=== PATIENT | female | born 1985 | race Caucasian/White ===

== ENCOUNTER 2017-05-21 07:55 | Emergency (ER) | payer MEDICAID ==
[~2017-05-21] VITALS: Ht 165.1 cm; Wt 95.4 kg
[2017-05-21 08:01] VITALS: BP 115/62
--- NOTE | 2017-05-21 08:30 | NUR ---
BIB SELF C/O PAINFUL LUMP RIGHT AXILLA X 2 WKS---PALPATED, NO REDNESS, NO GROWTH VISUALLY NOTED. DENIES N/V/D; SKIN IS PINK/WARM/DRY; AAOX4 WITH EVEN AND STEADY GAIT; LUNGS CLEAR BL; HR EVEN AND REGULAR; PT DENIES ANY FEVER, CP, SOB, OR COUGH AT THIS TIME; PATIENT STATES PAIN OF 8/10 AT THIS TIME; PATIENT POSITIONED FOR COMFORT; HOB ELEVATED; BEDRAILS UP X2; BED DOWN. ER MADE AWARE OF PT STATUS. Addendum: 05/21/17 at 0913 by [email or web address] PT STS DON'T WANT PAIN MED AT THIS TIME.
[2017-05-21 09:00] VITALS: BP 107/63
--- NOTE | 2017-05-21 09:00 | NUR ---
Patient discharged with v/s stable. Written and verbal after care instructions given and explained. Patient alert, oriented and verbalized understanding of instructions. Ambulatory with steady gait. All questions addressed prior to discharge. ID band removed. Patient advised to follow up with PMD. Rx of CAPHALEXIN & NAPROSYN given. Patient educated on indication of medication including possible reaction and side effects. Opportunity to ask questions provided and answered.
== END 2017-05-21 09:00 | disposition home or self-care (01) ==
LOC: MED 07:55
DX: R22.9 Localized swelling, mass and lump, unspecified (principal)
CPT/HCPCS: 99284

== ENCOUNTER 2018-01-29 08:38 | Emergency (ER) | payer MEDICAID ==
[~2018-01-29] VITALS: Ht 165.1 cm; Wt 100.4 kg
[2018-01-29 08:52] VITALS: BP 113/61
--- NOTE | 2018-01-29 08:58 | NUR ---
PT AMBULATES TO BED 11
--- NOTE | 2018-01-29 09:01 | NUR ---
PATIENT PRESENTS TO ED WITH LEFT LOWER QUADRANT PAIN. PT STATES SHE HAS HAD THIS PAIN FOR THREE DAYS AND IS FEELING SOME BLOATING. LAST BOWEL MOVEMENT WAS YESTERDAY. LMP 01/12/2018. DENIES N/V/D; SKIN IS PINK/WARM/DRY; AAOX4 WITH EVEN AND STEADY GAIT; LUNGS CLEAR BL; HR EVEN AND REGULAR; PT DENIES ANY FEVER, CP, SOB, OR COUGH AT THIS TIME; PATIENT STATES PAIN OF 8/10 AT THIS TIME; VSS; PATIENT POSITIONED FOR COMFORT; HOB ELEVATED; BEDRAILS UP X1; BED DOWN. ER MD MADE AWARE OF PT STATUS.
[2018-01-29] MEDS ORDERED: KETOROLAC 30 MG/ML VIAL IVP ONE (09:05)
[2018-01-29] MEDS ORDERED: NACL 0.9% 1,000 ML IV ONE (09:05)
[2018-01-29 09:39] LABS: BASOPHILS # (AUTO) 0.1 K/uL (0.00-0.22); EOSINOPHILS # (AUTO) 0.2 K/uL (0-0.4); EOSINOPHILS % (AUTO) 2.4 % (0.0-4.0); HEMATOCRIT 41.4 % (36-48); HEMOGLOBIN 14.1 g/dL (12.0-16.0); LYMPHOCYTES # (AUTO) 2.3 K/uL (2.5-16.5); LYMPHOCYTES % (AUTO) 28.4 % (20.5-51.1); MEAN CORPUSCULAR HEMOGLOBIN 31 pg (27-31); MEAN CORPUSCULAR HGB CONC 34 g/dL (33-37); MONOCYTES # (AUTO) 0.6 K/uL (0.8-1.0); MONOCYTES % (AUTO) 7.8 % (1.7-9.3); NEUTROPHILS % (AUTO) 60.4 % (42.2-75.2); PLATELET COUNT (AUTO) 268 K/uL (140-450); RED CELL DISTRIBUTION WIDTH 12.6 % (11.6-13.7); WHITE BLOOD COUNT (AUTO) 8.3 K/uL (4.8-10.8)
[2018-01-29 09:47] LABS: APPEARANCE,URINE CLEAR (CLEAR); BILIRUBIN,URINE NEGATIVE (NEGATIVE); BLOOD, URINE 1+ (NEGATIVE); COLOR,URINE YELLOW (YELLOW); LEUKOCYTE ESTERASE ,URINE NEGATIVE (NEGATIVE); NITRITE, URINE NEGATIVE (NEGATIVE); UGLUCOSE NEGATIVE (NEGATIVE)
[2018-01-29 09:52] LABS: ALBUMIN 3.6 g/dL (3.4-5.0); ANION GAP 13.2 (8-16); CARBON DIOXIDE 25.5 mmol/L (21-32); CREATININE 0.6 mg/dL (0.6-1.3); POTASSIUM 3.7 mmol/L (3.5-5.1); TOTAL BILIRUBIN 0.5 mg/dL (0.0-1.0)
[2018-01-29 10:01] LABS: RBC,URINE 0-5 (RARE) /HPF (0-5); WBC,URINE 0-5 (RARE) /HPF (0-5)
--- NOTE | 2018-01-29 10:50 | NUR ---
PATIENT TAKEN TO CT.
--- NOTE | 2018-01-29 12:02 | NUR ---
MD AT BEDSIDE SPEAKING WITH PT
[2018-01-29 12:10] VITALS: BP 115/65
--- NOTE | 2018-01-29 12:10 | NUR ---
Patient discharged with v/s stable. Written and verbal after care instructions given and explained. Patient alert, oriented and verbalized understanding of instructions. Ambulatory with steady gait. All questions addressed prior to discharge. ID band removed. Patient advised to follow up with PMD. Rx of SIMETHICONE AND IBUPROFEN given. Patient educated on indication of medication including possible reaction and side effects. Opportunity to ask questions provided and answered.
== END 2018-01-29 12:10 | disposition home or self-care (01) ==
LOC: MED 08:38
DX: R10.32 Left lower quadrant pain (principal)
CPT/HCPCS: 36415; 74176; 80053; 81001; 81025; 82150; 83690; 84703; 85025; 96374; 99285; J1885

== ENCOUNTER 2018-03-20 06:38 | Emergency (ER) | payer MEDICAID ==
[~2018-03-20] VITALS: Ht 160 cm; Wt 101.2 kg
[2018-03-20 06:43] VITALS: BP 127/82
[2018-03-20] MEDS ORDERED: diphenhydrAMINE 50 MG/ML VIAL IM ONE (07:10)
[2018-03-20] MEDS ORDERED: DEXAMETHASONE 10 MG/ML VIAL IM ONE (07:10)
[2018-03-20 07:43] VITALS: BP 122/80
== END 2018-03-20 07:43 | disposition home or self-care (01) ==
LOC: MED 06:38
DX: L29.9 Pruritus, unspecified (principal); L98.9 Disorder of the skin and subcutaneous tissue, unspecified
CPT/HCPCS: 99283

== ENCOUNTER 2018-07-18 07:51 | Emergency (ER) | payer MEDICAID ==
[~2018-07-18] VITALS: Ht 160 cm; Wt 95.3 kg
[2018-07-18 08:06] VITALS: BP 139/88
--- NOTE | 2018-07-18 08:09 | NUR ---
PT. BIB TO THE ED DUE TO LOWER ABD PAIN AND DYSURIA X 4 DAYS. PT. STATES " I HAVE BEEN HAVING PAIN AND DISCOMFORT IN MY LOWER STOMACH FOR ABOUT 4 DAYS AND IT TOBAR AND HURTS WHEN I PEE". 6/10 BURNING PAIN UPON URINATION AND IN LOWER ABD THAT RADIATES TO LOWER BACK. PT. DENIES ANY BLOOD IN THE URINE. DENIES ANY N/V/D. DENIES ANY FEVER OR CHILLS. RR EVEN AND UNLABORED. ABD ROUND AND SOFT. DYSURIA AND FREQUENCY REPORTED X 4 DAYS. ER MD MADE AWARE. WILL CONTINUE TO MONITOR. SAFETY PRECAUTIONS IMPLEMENTED. AT BEDSIDE.
[2018-07-18 08:26] VITALS: BP 104/74
--- NOTE | 2018-07-18 08:26 | NUR ---
Patient discharged with v/s stable. Written and verbal after care instructions given and explained. Patient alert, oriented and verbalized understanding of instructions. Ambulatory with steady gait. All questions addressed prior to discharge. ID band removed. Patient advised to follow up with PMD. Rx of PHENAZOPYRIDINE 100MG , CEPHELAXIN 500MG given. Patient educated on indication of medication including possible reaction and side effects. Opportunity to ask questions provided and answered.
[2018-07-18 09:42] LABS: APPEARANCE,URINE CLEAR (CLEAR); BILIRUBIN,URINE NEGATIVE (NEGATIVE); BLOOD, URINE NEGATIVE (NEGATIVE); COLOR,URINE YELLOW (YELLOW); LEUKOCYTE ESTERASE ,URINE NEGATIVE (NEGATIVE); NITRITE, URINE NEGATIVE (NEGATIVE); UGLUCOSE NEGATIVE (NEGATIVE)
[2018-07-18 09:58] LABS: RBC,URINE 0-5 (RARE) /HPF (0-5); WBC,URINE 0-5 (RARE) /HPF (0-5)
== END 2018-07-18 08:26 | disposition home or self-care (01) ==
LOC: MED 07:51
DX: N39.0 Urinary tract infection, site not specified (principal); R03.0 Elevated blood-pressure reading, without diagnosis of hypertension
CPT/HCPCS: 81001; 81025; 99283

== ENCOUNTER 2018-09-30 06:40 | Emergency (ER) | payer MEDICAID ==
[~2018-09-30] VITALS: Ht 177.8 cm; Wt 95.3 kg
[2018-09-30 06:44] VITALS: BP 143/79
--- NOTE | 2018-09-30 06:44 | NUR ---
PT AMBULATED TO BED #8
--- NOTE | 2018-09-30 06:45 | NUR ---
PATIENT PRESENTS ER WITH C/O PAIN TO THE RIGHT ANKLE TODAY. PT STATED THAT SHE WAS WALKING AND INJURED IT. PT HAS MINIMAL SWELLING AND NO REDNESS TO SITE. PATIENT STATES PAIN OF 8/10 AT THIS TIME; VSS; PATIENT POSITIONED FOR COMFORT; HOB ELEVATED; BEDRAILS UP X2; BED DOWN. ER MD MADE AWARE OF PT STATUS. PT STATES NO PRIOR MED HX AND KNA
[2018-09-30] MEDS ORDERED: IBUPROFEN 600 MG TAB PO ONE (07:25)
--- NOTE | 2018-09-30 07:45 | NUR ---
EMT AT PT BEDSIDE.
[2018-09-30 08:05] VITALS: BP 143/79
--- NOTE | 2018-09-30 08:05 | NUR ---
Patient discharged with v/s stable. Written and verbal after care instructions given and explained. Patient alert, oriented and verbalized understanding of instructions. Ambulatory with CRUTCH assistance. All questions addressed prior to discharge. ID band removed. Patient advised to follow up with PMD. Rx of IBUPROFEN was given. Patient educated on indication of medication including possible reaction and side effects. Opportunity to ask questions provided and answered.
== END 2018-09-30 08:05 | disposition home or self-care (01) ==
LOC: MED 06:40
DX: S93.401A Sprain of unspecified ligament of right ankle, initial encounter (principal); M54.5 Low back pain; W10.9XXA Fall (on) (from) unspecified stairs and steps, initial encounter; Y93.89 Activity, other specified; Y92.89 Other specified places as the place of occurrence of the external cause; Y99.8 Other external cause status
CPT/HCPCS: 73610; 99283; Q0092

== ENCOUNTER 2018-11-26 17:59 | Emergency (ER) | payer MEDICAID ==
[~2018-11-26] VITALS: Ht 170.2 cm; Wt 2.4 kg
--- NOTE | 2018-11-26 18:03 | NUR ---
PATIENT AMBULATED TO BED 3.
[2018-11-26 18:07] VITALS: BP 121/80
--- NOTE | 2018-11-26 18:12 | NUR ---
BIB SELF. PATIENT C/O OF PAIN AND SKIN HARDNESS TO LEFT ARMPIT X 3 DAYS. PT STATES THAT ABSCESS POPPED WITH BLOOD AND YELLOW DISCHARGE YESTERDAY. AAOX4 WITH EVEN AND STEADY GAIT;PATIENT STATES PAIN OF 8/10 AT THIS TIME; PATIENT POSITIONED FOR COMFORT; HOB ELEVATED; BEDRAILS UP X2; BED DOWN. ER MD MADE AWARE OF PT STATUS.
--- NOTE | 2018-11-26 18:12 | NUR ---
Note undone in EDM - 11/26/18 at 1846 by MED BIB SELF. PATIENT C/O OF PAIN AND LUMP TO LEFT ARMPIT X 3 DAYS AAOX4 WITH EVEN AND STEADY GAIT;PATIENT STATES PAIN OF 8/10 AT THIS TIME; PATIENT POSITIONED FOR COMFORT; HOB ELEVATED; BEDRAILS UP X2; BED DOWN. ER MADE AWARE OF PT STATUS.
--- NOTE | 2018-11-26 19:18 | NUR ---
Pt report given to DENNIS REID. Transfer of care at this time.
--- NOTE | 2018-11-26 19:18 | NUR ---
Dr. Turner evaluating patient at bedside.
[2018-11-26 19:40] VITALS: BP 119/95
--- NOTE | 2018-11-26 19:40 | NUR ---
Patient discharged with v/s stable. Written and verbal after care instructions given and explained. Patient alert, oriented and verbalized understanding of instructions. Ambulatory with steady gait. All questions addressed prior to discharge. ID band removed. Patient advised to follow up with PMD. Rx of KEFLEX, BACTRIM, AND MOTRIN given. Patient educated on indication of medication including possible reaction and side effects. Opportunity to ask questions provided and answered.
== END 2018-11-26 19:40 | disposition home or self-care (01) ==
LOC: MED 17:59
DX: L02.412 Cutaneous abscess of left axilla (principal)
CPT/HCPCS: 99283

== ENCOUNTER 2023-08-22 07:55 | Emergency (ER) | payer MEDICAID ==
[~2023-08-22] VITALS: Ht 157.5 cm; Wt 61.2 kg
[2023-08-22 08:16] VITALS: BP 137/75; PULSE 73; RESP 17; TEMP 97.9; O2SAT 97
[2023-08-22] MEDS ORDERED: KETOROLAC 30 MG/ML VIAL IM ONE (08:45)
[2023-08-22] MEDS ORDERED: IBUP-2213 PO (09:03)
[2023-08-22 09:19] VITALS: BP 137/75; PULSE 73; RESP 17; TEMP 97.9; O2SAT 97
== END 2023-08-22 09:21 | disposition home or self-care (01) ==
LOC: MED 07:55
DX: G56.03 Carpal tunnel syndrome, bilateral upper limbs (principal); Z79.1 Long term (current) use of non-steroidal anti-inflammatories (NSAID)
CPT/HCPCS: 29515; 81025; 96372; 99283; J1885

== ENCOUNTER 2023-10-22 19:47 | Emergency (ER) | payer MEDICAID, OTHER ==
[~2023-10-22] VITALS: Ht 152.4 cm; Wt 104.3 kg
[~2023-10-22 19:47] MED LIST: IBUP-2213 PO
[2023-10-22 19:55] VITALS: BP 111/86; PULSE 85; RESP 16; TEMP 97.4; O2SAT 98
[2023-10-22] MEDS ORDERED: KETOROLAC 60 MG/2 ML VIAL IM ONE (20:35)
[2023-10-22] MEDS ORDERED: ACET-8905 PO (20:36)
[2023-10-22] MEDS ORDERED: IBUP-2213 PO (20:36)
== END 2023-10-22 21:14 | disposition home or self-care (01) ==
LOC: MED 19:47
DX: M54.50 Low back pain, unspecified (principal); Z79.899 Other long term (current) drug therapy
CPT/HCPCS: 81002; 81025; 96372; 99283; J1885